=== PATIENT | male | born 1985 | race Caucasian/White ===

== ENCOUNTER 2018-08-27 10:45 | Emergency (ER) | payer MEDICAID ==
[~2018-08-27] VITALS: Ht 188 cm; Wt 81.7 kg
[2018-08-27 10:57] VITALS: Ht 188 cm; Wt 81.7 kg
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
[2018-08-27] MEDS ORDERED: IBUP-1542 PO (13:59)
[2018-08-27 14:07] VITALS: BP 120/67; PULSE 63; RESP 18
== END 2018-08-27 14:08 | disposition home or self-care (01) ==
LOC: FTE 10:45
DX: R07.89 Other chest pain (principal)
CPT/HCPCS: 71045; 71100; 81003; 93005; Z7502